=== PATIENT | female | born 1960 | race Caucasian/White ===

== ENCOUNTER → 2017-02-14 | Outpatient (CLI) | payer BC ==
--- NOTE | 2017-02-14 13:50 | RADIOLOGY REPORT PS360 ---
US THYROID HISTORY: RT THYROID NEOPLASM ORDERING PHYSICIAN: Johnson Triana MD PATIENT AGE: 56 years COMPARISON: None FINDINGS: Right lobe: The right lobe is 4 x 1.4 x 2 cm. There are 3 nodules in the upper pole all 3 of which are solid and measure 3 and 4 and 4 mm each 13 x 8 mm solid nodule midpole with mild lobulation of the borders 8 mm solid nodule midpole posteriorly well-circumscribed 22 x 14 mm mostly solid nodule lower pole was some decreased echogenicity superiorly and minimal central cystic changes. Well-circumscribed. Left lobe: 4.4 x 1.3 x 1.6 cm. Solid isoechoic nodule superior pole and 11 x 6 mm. 7 mm solid-appearing nodule mid pole 6 mm solid-appearing nodule lower pole 7 x 7 mm solid appearing nodule lower pole Isthmus: Unremarkable IMPRESSION: Multinodular goiter. The largest nodule is in the lower pole on the right at 22 x 14 mm
--- NOTE | 2017-02-14 14:03 | RADIOLOGY REPORT PS360 ---
US BIOPSY OR PARACENTESIS HISTORY: RT THYROID NEOPLASM ORDERING PHYSICIAN: Johnson Triana MD PATIENT AGE: 56 years COMPARISON: Ultrasound of the same day TECHNIQUE: Following obtaining informed consent, using aseptic technique and local anesthesia with buffered lidocaine, fine-needle aspiration was performed of the nodule of interest in the lower pole on the right using sonographic guidance. 3 passes were made into the nodule with a 25-gauge needle. Specimen was given to cytology. The patient tolerated the procedure well without evidence of immediate complications and left the ultrasound suite in stable condition. CYTOLOGY:Pending IMPRESSION: Uneventful sonographically guided fine needle aspiration of the solid nodule in the lower pole of right lobe of the thyroid gland
== END ==
LOC: RAD 08:59
PROC: 0G9H3ZX Drainage of Right Thyroid Gland Lobe, Percutaneous Approach, Diagnostic (ICD-10-PCS; principal; 2017-02-14)
DX: D34 Benign neoplasm of thyroid gland (principal)